=== PATIENT | female | born 1945 | race Caucasian/White ===

== ENCOUNTER 2018-08-16 08:53 | Inpatient (IN) ==
[2018-08-16] MEDS ORDERED: NS 1,000 ML IV ONE ×3 (09:03→10:08)
[2018-08-16 09:04] LABS: BASO# 0.03 X1000 (0.0-0.2); BASO% 0.4 % (0.0-0.8); EOS# 0.21 X1000 (0.0-0.7); EOS% 2.7 % (0.0-10.0); HEMATOCRIT 46.2 % (37.0-47.0); HEMOGLOBIN 15.5 g/dL (12.0-16.0); IMM GRAN# 0.04 X1000 (0.0-0.04); IMM GRAN% 0.5 % (0.0-0.5); LYMPH# 1.82 X1000 (1.2-3.4); LYMPH% 23.6 % (20.5-51.1); MCH 28.1 PG (27-31); MCHC 33.5 g/dL (33-37); MCV 83.8 FL (81-99); MONO# 0.71 X1000 (0.11-0.59); MONO% 9.2 % (1.7-9.3); MPV 9.8 FL (7.4-10.4); NEUT# 4.89 X1000 (1.4-6.5); NEUT% 63.6 % (42.2-75.2); PLT 216 X1000 (130-400); RBC 5.51 XMIL (4.2-5.4); RDW 14.7 % (11.5-14.5)
[2018-08-16 09:26] LABS: CREATININE 3.1 mg/dL (0.5-0.9); POTASSIUM 4.7 mmol/L (3.5-5.1); TOTAL BILIRUBIN 0.5 mg/dL (0.20-1.00); TOTAL PROTEIN 8.2 g/dL (6.3-8.3)
[2018-08-16 09:28] LABS: CALCIUM 13.1 mg/dL (8.8-10.2)
[2018-08-16 09:37] LABS: BILIRUBIN URINE NEGATIVE (NEGATIVE); BLOOD URINE 1+ (NEGATIVE); COLOR YELLOW; GLUCOSE URINE NEGATIVE (NEGATIVE); KETONE URINE TRACE mg/dL (NEGATIVE); LEUKOCYTES URINE TRACE (NEGATIVE); NITRITE URINE NEGATIVE (NEGATIVE); PROTEIN URINE 2+(100 mg/dL) mg/dL (NEGATIVE); SP GRAVITY URINE 1.015; URINE BACTERIA 1+ /HFP; URINE EPITHELIAL CELLS <10 /HPF (<10); URINE RBC <10 /HPF (<10); UROBILINOGEN URINE NORMAL
[2018-08-16 09:38] LABS: CLARITY CLEAR (CLEAR); URINE CAST NONE SEEN /LPF; URINE CRYSTAL NONE SEEN /HPF; URINE SOURCE CATH; URINE YEAST NONE SEEN /HPF
--- NOTE | 2018-08-16 09:40 | Diag Imaging Result Doc PS360 ---
EXAM: CT HEAD W/O CONTRAST HISTORY: altered mental status TECHNIQUE: CT head without contrast COMPARISON: 07/12/2018 FINDINGS: No parenchymal hemorrhage. No epidural or subdural hematoma. No subarachnoid hemorrhage. There is atrophy with chronic microvascular ischemic changes. No mass identified on this noncontrasted exam. No hydrocephalus. No change in the right mastoid fluid. IMPRESSION: 1.No hemorrhage 2.Atrophy with chronic microvascular ischemic changes This exam was performed using automated exposure control, adjustment of mA or kV according to patient size, and/or use of iterative reconstruction technique. Electronically signed by Colten Fischer 08/16/2018 9:37 AM
--- NOTE | 2018-08-16 09:40 | Diag Imaging Result Doc PS360 ---
EXAM: CHEST-PORTABLE HISTORY: AMS TECHNIQUE: Chest single view COMPARISON: 07/12/2018 FINDINGS: The lungs are well expanded. The heart is not enlarged. There are sternal wires and surgical clips. The vessels are not distended. There are no infiltrates. No effusion identified. Right granuloma. IMPRESSION: Stable chest Electronically signed by Colten Fischer 08/16/2018 9:38 AM
[2018-08-16] MEDS ORDERED: NS 1,000 ML IV SCH (11:30)
--- NOTE | 2018-08-16 13:17 | EKG Report ---
Test Performed on : 08/16/2018 09:16:00 AM Test Reason : abnormal labs Blood Pressure : / mmHG Vent. Rate : 085 BPM Atrial Rate : 085 BPM P-R Int : 188 ms QRS Dur : 118 ms QT Int : 368 ms P-R-T Axes : 054 -60 091 degrees QTc Int : 437 ms Normal sinus rhythm. Left anterior fascicular block Left ventricular hypertrophy with QRS widening and repolarization abnormality Cannot rule out Septal infarct , age undetermined Abnormal ECG When compared with ECG of 01-AUG-2018 11:47, No significant change was found Unconfirmed Result
[2018-08-16] MEDS: D5 1/2 NS 1,000 ML IV SCH ×2 (13:27→23:38)
--- NOTE | 2018-08-16 14:48 | HISTORY AND PHYSICAL ---
CHIEF COMPLAINT: Altered mental status. HISTORY OF PRESENT ILLNESS: This is a 73-year-old female, who presented to [facility] ER via EMS after she was found unresponsive this morning per [facility] staff, where she was there for some inpatient psychiatric treatment. When she arrived to the emergency room, her laboratory data showed a sodium of 150, chloride 112, BUN of 45, creatinine of 3.1, and it looks like her baseline is typically anywhere from 2.2 to 2.5, but is still mildly up. Her calcium was 13.1. Urinalysis was negative, except for 1+ bacteria. Chest x-ray was stable. Head CT: No hemorrhage. She is admitted to the medical unit for further evaluation and treatment. PAST MEDICAL HISTORY: Hypertension, diabetes type 2, hypothyroidism, schizophrenia, PTSD, chronic kidney disease stage 4. PAST SURGICAL HISTORY: CABG, hysterectomy, sinus surgery x2. FAMILY HISTORY: Noncontributory. SOCIAL HISTORY: Currently was at [facility] for inpatient psychiatric treatment. I am not sure who she lives with outside of the hospital setting, and no family is present for me to verify this, but there is no tobacco, alcohol, or illicit drugs noted. ALLERGIES: Levothyroxine. HOME MEDICATIONS: A current list will need to be obtained, reconciled, reviewed, and restarted as appropriate. Will place an order for nursing to update and confirm home medication. IMAGING AND LABORATORY DATA: Laboratory data showed a white blood cell count of 7.70, hemoglobin of 15.5, hematocrit 46.2, platelets 216,000. Sodium 150, potassium 4.7, chloride 112, CO2 of 25, BUN of 45, creatinine 3.1, glucose 107, calcium 13.1. Cardiac enzyme was negative. Urinalysis was negative, except for 1+ bacteria. Chest x-ray showed a stable chest. CT of the head showed no hemorrhage, atrophy, with chronic microvascular change. REVIEW OF SYSTEMS: Unable to obtain from the patient at this time. PHYSICAL EXAMINATION: VITAL SIGNS: On arrival, she had a temperature of 98.2, a pulse of 83, respirations 18, blood pressure 147/101, saturating 98% on room air. GENERAL: This is a 73-year-old female, lying in the bed, unable to answer questions at this time. HEENT: Normocephalic, atraumatic. Oropharynx is noted to be dry mucous membranes with crusting to her upper and lower lips, but otherwise normal inspection. Eyes: Pupils appear equal, round, and reactive to light and accommodation. Extraocular movements are intact. NECK: Normal inspection. Normal range of motion. LUNGS: Clear to auscultation bilaterally with equal lung expansion and chest wall movement. HEART: Regular rate and rhythm. No murmurs, rubs, or gallops. ABDOMEN: Soft, nontender, nondistended. Bowel sounds are present x4 quadrants. MUSCULOSKELETAL: She is moving all extremities well, but unable to assess strength at this time as she is not following any commands. NEUROLOGICAL: Cranial nerves II through XII appear grossly intact. ASSESSMENT: 1. Altered mental status. 2. Hypernatremia. 3. Acute on chronic kidney disease stage 4. 4. Hypercalcemia. PLAN: She is admitted to the medical unit at [place], placed on telemetry. Will do D5 and half normal saline at 100 mL an hour. Will update and confirm her home medications. Check a urine culture, and recheck CBC and BMP in the a.m., and further orders after being seen by attending. Dictated by [facility] for Javier Gastelum MD cc: [facility] MD
[2018-08-16 14:50] LABS: BILIRUBIN URINE NEGATIVE (NEGATIVE); BLOOD URINE TRACE (NEGATIVE); GLUCOSE URINE NEGATIVE (NEGATIVE); KETONE URINE NEGATIVE (NEGATIVE); LEUKOCYTES URINE NEGATIVE (NEGATIVE); NITRITE URINE NEGATIVE (NEGATIVE); PROTEIN URINE 1+(30 mg/dL) mg/dL (NEGATIVE); UROBILINOGEN URINE NORMAL
[2018-08-16 14:51] LABS: CLARITY CLEAR (CLEAR); COLOR YELLOW
[2018-08-16 14:58] LABS: URINE BACTERIA 1+ /HFP; URINE EPITHELIAL CELLS <10 /HPF (<10); URINE RBC <10 /HPF (<10); URINE WBC <10 /HPF (<10)
[2018-08-16 14:59] LABS: URINE CAST NONE SEEN /LPF; URINE CRYSTAL NONE SEEN /HPF; URINE SOURCE CATH; URINE YEAST NONE SEEN /HPF
[2018-08-16] MEDS ORDERED: MAALOX PLUS LIQUID PO PRN (16:24)
[2018-08-16] MEDS ORDERED: DULCOLAX PR PRN (16:24)
[2018-08-16] MEDS ORDERED: DESYREL PO PRN (16:24)
[2018-08-16] MEDS ORDERED: SENOKOT PO PRN (16:24)
[2018-08-16] MEDS ORDERED: IMODIUM PO PRN (16:24)
[2018-08-16] MEDS ORDERED: BLISTEX MEDICATED BERRY LIP BALM TOP PRN (16:24)
[2018-08-16] MEDS ORDERED: STERILE WATER INJ. INJ PRN (16:52)
[2018-08-16] MEDS ORDERED: GEODON IM PRN (16:52)
[2018-08-16] MEDS ORDERED: SODIUM CHLORIDE 0.9% INJ PRN (17:12)
[2018-08-16] MEDS ORDERED: TYLENOL PO PRN (17:37)
--- NOTE | 2018-08-16 17:40 | PROVIDER DOCUMENTATION ---
This chart was entered by [place] Scribe, acting as scribe for Cookie Sarabia MD. HPI-Neurological Disorder - General Chief Complaint: Abnormal Lab[s] Stated Complaint: AMS Time Seen by Provider: 08/16/18 09:06 Source: EMS Allergies/Adverse Reactions: Patient Allergies Allergy/AdvReac Type Severity Reaction Status Date / Time levothyroxine sodium Allergy Unknown Verified 07/12/18 03:13 Home Medications: Home Medication List Medication Instructions Recorded Confirmed Last Taken Type Metoprolol Succinate E.r. [Toprol 50 mg PO DAILY 11/12/13 07/12/18 07/11/18 History Xl] Clotrimazole/Bmethasone Cream 1 applic TOP BID 7 Days #1 tube 07/21/17 07/12/18 08/27/17 07:00 Rx [Lotrisone Cream] Levothyroxine Sodium [Synthroid] 112 mcg PO DAILY 07/12/18 07/12/18 Unknown History Nitrofurantoin [place]/Macrocryst 100 mg PO BID 07/12/18 07/12/18 Unknown History [Macrobid] Ondansetron Odt [Zofran Odt] 4 mg PO TID AC 07/12/18 07/12/18 Unknown History Pantoprazole Sodium 40 mg PO DAILY 07/12/18 07/12/18 Unknown History Polyethylene Glycol 3350 [Miralax] 17 gm PO BID 07/12/18 07/12/18 Unknown History Rivastigmine [Exelon 4.6MG/24Hrs] 1 ea TOP DAILY 07/12/18 07/12/18 Unknown History Sitagliptin Phosphate [Januvia] 25 mg PO QAM 07/12/18 07/12/18 Unknown History Sucralfate 1 gm PO AC + HS 07/12/18 07/12/18 Unknown History Divalproex [Depakote Sprinkle] 500 mg PO BID cap 08/05/18 Unknown Rx Melatonin 5 mg PO QHS tab 08/05/18 Unknown Rx Mirtazapine [Remeron] 15 mg PO QHS tab 08/05/18 Unknown Rx Risperidone [Risperdal M-Tab] 0.5 mg PO BID tab.rapdis 08/05/18 Unknown Rx Trazodone [Desyrel] 50 mg PO QHS tab 08/05/18 Unknown Rx - History of Present Illness-Neuro Nature of Presenting Problem: Patient is a 73 year old female who presents to the ED via EMS with altered mental status. EMS states patient was unresponsive this morning per [facility] staff. EMS reports [facility] staff stated patient has an abnormal lab. Severity: reports: mild Onset/Duration: reports: this morning Timing: reports: still present Context: reports: other (found unresponsive by [facility] staff) Character of Altered Mental Status: reports: unresponsive Any recent trauma/injury?: reports: none Similar Symptoms Previously?: No Recently seen or treated by another doctor?: Yes Review of Systems - Adult - REVIEW OF SYSTEMS - ADULT ROS:: unobtainable per condition Constitutional: reports: no symptoms reported Eyes: reports: no symptoms reported Ears, Nose, Mouth & Throat: reports: no symptoms reported Cardiovascular: reports: no symptoms reported Respiratory: reports: no symptoms reported Gastrointestinal: reports: no symptoms reported Genitourinary: reports: no symptoms reported Musculoskeletal: reports: no symptoms reported Integumentary: reports: no symptoms reported Neurological: reports: no symptoms reported Psychiatric: reports: no symptoms reported Endocrine: reports: no symptoms reported Hematologic/Lymphatic: reports: no symptoms reported Allergic/Immunologic: reports: no symptoms reported All Other Systems: Reviewed and Negative Past History - Adult - PAST MEDICAL HISTORY-ADULT Review of Records: reports: Nursing Assessment Review, Medications Reviewed, Social history reviewed & non-contributory. Major Childhood Illnesses: reports: denies history Cardiovascular: reports: HTN Respiratory: reports: denies history Gastrointestinal: reports: denies history Obstetrical/Gynecological: reports: denies history Genitourinary: reports: kidney disease Musculoskeletal: reports: denies history Neurological: reports: dementia Psychiatric: reports: depression, psychiatric problems, ptsd, suicide attempt, schizophrenia Endocrine/Immune: reports: Diabetes, thyroid disorder (hypothyroidism) Other Conditions: reports: denies history - PRIOR SURGERIES/PROCEDURES Surgical/Procedure History: reports: CABG, hysterectomy, other (sinus x 2) - PRIOR HOSPITALIZATIONS Prior Hospitalizations: reports: for similar symptoms - IMMUNIZATION STATUS Childhood Immunizations: See Nurse Assessment Flu Vaccine: See Nurse Assessment - FAMILY HISTORY Family History: reviewed, not pertinent - SOCIAL HISTORY Smoking: denies Substance Use: denies Physical Exam- Neurological - Physical Exam-Neuro Initial Vital Signs Reviewed: Yes General Appearance: no apparent distress, obtunded, other (rousable). negative: combative Eye Exam: bilateral eye: normal inspection HENMT: moist mucous membranes, normal ENT inspection. negative: angioedema, hearing deficit Head Injury: no evidence of injury. negative: ecchymosis, lacerations Respiratory: chest non-tender, lungs clear, normal breath sounds. negative: crackles, wheezing Cardiovascular: normal peripheral pulses, regular rate, rhythm. negative: bradycardia, systolic murmur Abdominal Exam: normal bowel sounds, non tender, soft. negative: guarding Extremity: non-tender, normal inspection. negative: deformity, erythema caretaker resort Exam: other (unable to assess per patient's condition) Motor/Sensory: other (unable to assess per patient's condition) Neurologic: other (unable to assess per patient's condition) Integumentary: normal color, normal turgor, warm/dry. negative: diaphoresis, jaundice Psych/Mental Status: other (obtunded but rousable.). negative: anxious, paranoid Progress - PLAN OF CARE/RESULTS Progress/Plan/Lab Results: Vital Signs - 8 hr 08/16/18 08:44 08/16/18 08:59 08/16/18 09:40 Temperature 98.2 F Pulse Rate 83 82 82 Respiratory Rate 18 20 17 Blood Pressure 147/101 163/85 164/96 O2 Sat by Pulse Oximetry 98 100 97 08/16/18 10:30 Temperature Pulse Rate 82 Respiratory Rate 14 Blood Pressure 99/71 O2 Sat by Pulse Oximetry 99 Laboratory Results - last 24 hr 08/16/18 08/16/18 08/16/18 08:51 08:51 08:51 WBC 7.70 RBC 5.51 H Hgb 15.5 Hct 46.2 MCV 83.8 MCH 28.1 MCHC 33.5 RDW Std Deviation 14.7 H Plt Count 216 MPV 9.8 Immature Gran % (Auto) 0.5 Neut % (Auto) 63.6 Lymph % (Auto) 23.6 [place] % (Auto) 9.2 Eos % (Auto) 2.7 Baso % (Auto) 0.4 Immature Gran # (Auto) 0.04 Neut # (Auto) 4.89 Lymph # (Auto) 1.82 [place] # (Auto) 0.71 H Eos # (Auto) 0.21 Baso # (Auto) 0.03 Sodium 150 H Potassium 4.7 Chloride 112 H Carbon Dioxide 25 Anion Gap 13 BUN 45 H Creatinine 3.1 H Estimated GFR/1.73 m2 15 BUN/Creatinine Ratio 15 Glucose 107 H Calculated Osmolality 310 Calcium 13.1 H* Total Bilirubin 0.50 AST 20 ALT 15 Alkaline Phosphatase 119 H Creatine Kinase 27 Troponin T Total Protein 8.2 Albumin 4.0 Globulin 4.0 Albumin/Globulin Ratio 1.0 Urine Source Urine Color Urine Clarity Urine pH Ur Specific [place] Urine Protein Urine Ketones Urine Blood Urine Nitrite Urine Bilirubin Urine Urobilinogen Urine Microscopic RBC Urine WBC Urine Microscopic WBC Ur Epithelial Cells Urine Crystals Urine Bacteria Urine Casts Urine Yeast Urine Glucose 08/16/18 08/16/18 08:51 09:17 WBC RBC Hgb Hct MCV MCH MCHC RDW Std Deviation Plt Count MPV Immature Gran % (Auto) Neut % (Auto) Lymph % (Auto) [place] % (Auto) Eos % (Auto) Baso % (Auto) Immature Gran # (Auto) Neut # (Auto) Lymph # (Auto) [place] # (Auto) Eos # (Auto) Baso # (Auto) Sodium Potassium Chloride Carbon Dioxide Anion Gap BUN Creatinine Estimated GFR/1.73 m2 BUN/Creatinine Ratio Glucose Calculated Osmolality Calcium Total Bilirubin AST ALT Alkaline Phosphatase Creatine Kinase Troponin T < 0.010 Total Protein Albumin Globulin Albumin/Globulin Ratio Urine Source CATH Urine Color YELLOW Urine Clarity CLEAR Urine pH 6.0 Ur Specific [place] 1.015 Urine Protein 2+(100 mg/dL) A Urine Ketones TRACE Urine Blood 1+ A Urine Nitrite NEGATIVE Urine Bilirubin NEGATIVE Urine Urobilinogen NORMAL Urine Microscopic RBC <10 Urine WBC TRACE A Urine Microscopic WBC 10-20 A Ur Epithelial Cells <10 Urine Crystals NONE SEEN Urine Bacteria 1+ Urine Casts NONE SEEN Urine Yeast NONE SEEN Urine Glucose NEGATIVE Orders Category Date Time Status Cardiac Monitoring DIRECTED Care 08/16/18 08:53 Active Saline Loc NOW Care 08/16/18 08:53 Active CHEST-PORTABLE [RAD] Stat Exams 08/16/18 09:[address] HEAD W/O CONTRAST [CT] Stat Exams 08/16/18 09:15 Completed CBC WITH DIFF [HEME] Stat Lab 08/16/18 08:51 Completed CK PROFILE [SP CHEM] Stat Lab 08/16/18 08:51 Completed COMPREHENSIVE METABOLIC PANEL [CHEM] Stat Lab 08/16/18 08:51 Completed TROPONIN T Stat Lab 08/16/18 08:51 Completed URINE CULTURE [RM] Routine Lab 08/16/18 09:38 Ordered ua [URINALYSIS PL W/POSS RFLX CULT] [URINALYSIS] Stat Lab 08/16/18 09:17 Completed 0.9% Sodium Chloride Inj [Ns] 1,000 ml Med 08/16/18 09:03 Discontinued IV 999 mls/hr 0.9% Sodium Chloride Inj [Ns] 1,000 ml Med 08/16/18 10:08 Active IV 999 mls/hr 0.9% Sodium Chloride Inj [Ns] 1,000 ml Med 08/16/18 10:08 Active IV 999 mls/hr EKG [EKG] Stat Ther 08/16/18 09:00 Ordered Result Diagrams: 08/16/18 08:51 08/16/18 08:51 - EKG 1 Time of EKG reading by physician:: 09:16 EKG Read and Signed by:: Cookie Sarabia EKG Interpretation (*Must complete 3 of following elements*): Abnormal (cannot rule out septal infarct, age undetermined) Rate: 85 Rhythm: normal sinus rhythm QRS: LVH GA Interval: normal Comments: left anterior fascicular block; - XRAY 1 XRAY Study: Chest Impression: See EMR Report ( EXAM: CHEST-PORTABLE HISTORY: AMS TECHNIQUE: Chest single view COMPARISON: 07/12/2018 FINDINGS: The lungs are well expanded. The heart is not enlarged. There are sternal wires and surgical clips. The vessels are not distended. There are no infiltrates. No effusion identified. Right granuloma. IMPRESSION: Stable chest Electronically signed by Colten Fischer 08/16/2018 9:38 AM 08/16/18937 Interpreting Physician: Colten Fischer MD Dictated Date/Time: 08/16/18937 cc: Cookie Sarabia MD; None,PCP) - CT/MRI 1 CT Study: Head Impression: See EMR Report ( EXAM: CT HEAD W/O CONTRAST HISTORY: altered mental status TECHNIQUE: CT head without contrast COMPARISON: 07/12/2018 FINDINGS: No parenchymal hemorrhage. No epidural or subdural hematoma. No subarachnoid hemorrhage. There is atrophy with chronic microvascular ischemic changes. No mass identified on this noncontrasted exam. No hydrocephalus. No change in the right mastoid fluid. IMPRESSION: 1.No hemorrhage 2.Atrophy with chronic microvascular ischemic changes This exam was performed using automated exposure control, adjustment of mA or kV according to patient size, and/or use of iterative reconstruction technique. Electronically signed by Colten Fischer 08/16/2018 9:37 AM 08/16/18 0937 Interpreting Physician: Colten Douglas MD Dictated Date/Time: 08/16/18 0935 cc: Cookie Sarabia MD; None,PCP) - CONSULTS/PCP/HOSPITALIST Notification #1 *Consult/PCP/Hospitalist*: Dr. Gastelum Time Discussed: 10:29 Reason/Comments: Dr. Sarabia consulted with Dr. Gastelum about patient. Consult Disposition: Admit Departure - Departure Date of Disposition Decision: 08/16/18 Time of Disposition Decision: 10:31 DIAGNOSIS: Hypercalcemia, Hypernatremia, Altered mental status, Dehydration Disposition: ADMITTED INPATIENT 09 Certified Medical Emergency: Emergent Condition: Stable Referrals and Follow-Ups: None,PCP [Primary Care Provider] - - Critical Care Note This patient required my direct & personal management of CC.: Yes Total Time (mins): 33 Critical Care Statement: This patient required my direct personal management to treat or rule out processes, the absence of which, could potentiallly result in sudden, clinically significant life or limb threatening deterioration. Attestation - Physician/ MARI Attestation The physician spent face to face time with patient:: Yes Advanced Practice Provider documentation review:: Supervising physician onsite and consulted in the evaluation and care of this patient. The physician did have a face to face encounter with the patient. This chart was documented by the indicated scribe, (Hazel Mead Scribe) and accurately reflects the services I performed and decisions made by me, Cookie Sarabia MD, as attested by the provider's signature.
[2018-08-16 18:11] LABS: UR CREAT RANDOM 61.2 mg/dL (11-20); UR PROT RANDOM 54.2 mg/dL
[2018-08-16] MEDS: ATIVAN IV PRN ×2 (19:30→23:36)
--- NOTE | 2018-08-16 20:04 | PROGRESS NOTE ---
DATE: 08/16/2018 This is an unfortunate lady, 73 years old, severe dementia with combative behavior, who has been at [facility] for the last 3 weeks. She was not awake, alert, but per family she has not been eating and drinking either. She had a couple of episodes of nausea, vomiting. She does have chronic renal failure, but she has developed significant hypercalcemia, hypernatremia. Per family, she has been a long-term resident I think at [facility], but because of behavioral issues, she has been at [facility] now reportedly for 3 weeks now. According to this, she has been there since the 12 of July, which is longer than 3 weeks and her history and physical says it is from 07/12. She has been there for quite a long time. In any case, reportedly also has schizophrenia, PTSD. She has been on Risperdal, trazodone, Depakote sprinkles, Remeron over the last 24 hours or so though she has progressively gotten less arousable. Now her sodium here is 150. Her creatinine is 3.1, which is an increase. Her calcium is through the roof 13.2, which it has been up before. In any case, the exam is really not too remarkable. PROBLEM LIST: 1. Hyponatremia. We will continue free water supplementation and follow. This is likely do just to poor p.o. intake, poor water intake. She has just been drinking Ensure. 2. Hypercalcemia. We will continue treatment. I may give her IV fluids and we may require a bisphosphonate once we get the workup kind of situated. 3. Dementia, severe. Will continue regular medications and follow. 4. Acute on chronic renal failure stage 4, which at this point she is likely right around stage 4 to 5. We will continue to follow hydration and follow. DISPOSITION: Pending her clinical status. This is a [id number] with [facility]. Family is deciding about possible rehab options with the patient. We will get a hospice evaluation, palliative care consult and see how she does. cc: Javier Gastelum MD
[2018-08-16 20:09] LABS: PHOSPHORUS 3.9 mg/dL (2.7-4.5)
[2018-08-16] MEDS: [UNRECOGNIZED DRUG - OTHER] PO SCH (20:11)
[2018-08-16] MEDS: MEGACE LIQUID PO SCH (20:12)
[2018-08-16] MEDS: LOTRISONE CREAM TOP SCH (20:12)
[2018-08-16] MEDS: RISPERDAL M-TAB PO SCH (20:12)
[2018-08-16] MEDS: MIRALAX PO SCH (20:12)
[2018-08-16 20:27] LABS: CALCIUM 13.3 mg/dL (8.8-10.2)
[2018-08-16] MEDS ORDERED: MELATONIN PO SCH (21:00)
[2018-08-16] MEDS ORDERED: REMERON PO SCH (21:00)
[2018-08-16] MEDS ORDERED: DEPAKOTE SPRINKLE PO SCH (21:00)
[2018-08-16] MEDS ORDERED: DESYREL PO SCH (21:00)
[2018-08-16] MEDS ORDERED: ATIVAN PO SCH (21:00)
[2018-08-16] MEDS ORDERED: LABETALOL IV PRN (23:14)
[2018-08-16] MEDS ORDERED: MORPHINE IV PRN (23:17)
[2018-08-17 06:53] LABS: BASO# 0.02 X1000 (0.0-0.2); BASO% 0.3 % (0.0-0.8); EOS% 5.1 % (0.0-10.0); HEMATOCRIT 42.5 % (37.0-47.0); IMM GRAN# 0.04 X1000 (0.0-0.04); IMM GRAN% 0.7 % (0.0-0.5); LYMPH# 1.84 X1000 (1.2-3.4); LYMPH% 31.1 % (20.5-51.1); MCH 28.2 PG (27-31); MCHC 32.9 g/dL (33-37); MCV 85.7 FL (81-99); MONO# 0.65 X1000 (0.11-0.59); MPV 9.9 FL (7.4-10.4); NEUT# 3.06 X1000 (1.4-6.5); NEUT% 51.8 % (42.2-75.2); PLT 184 X1000 (130-400); RBC 4.96 XMIL (4.2-5.4); RDW 14.9 % (11.5-14.5); WBC 5.91 X1000 (4.8-10.8)
[2018-08-17] MEDS ORDERED: SYNTHROID PO SCH (07:00)
[2018-08-17] MEDS: SYNTHROID IV SCH ×2 (07:08→09:30)
[2018-08-17 07:22] LABS: CREATININE 2.6 mg/dL (0.5-0.9); POTASSIUM 3.9 mmol/L (3.5-5.1)
[2018-08-17] MEDS ORDERED: TOPROL XL PO SCH (09:00)
[2018-08-17] MEDS ORDERED: JANUVIA PO SCH (09:00)
[2018-08-17] MEDS ORDERED: PROTONIX PO SCH (09:00)
[2018-08-17] MEDS: [UNRECOGNIZED DRUG - OTHER] PO SCH (09:09)
[2018-08-17] MEDS: MEGACE LIQUID PO SCH (09:10)
[2018-08-17] MEDS: MIRALAX PO SCH (09:13)
[2018-08-17] MEDS: EXELON 4.6MG/24HRS TD SCH (09:30)
[2018-08-17] MEDS: ATIVAN IV PRN ×3 (09:31→19:40)
[2018-08-17] MEDS: D5 1/2 NS 1,000 ML IV SCH (09:32)
[2018-08-17] MEDS: LOTRISONE CREAM TOP SCH ×2 (09:33→20:42)
[2018-08-17] MEDS: RISPERDAL M-TAB PO SCH (09:34)
[2018-08-17] MEDS ORDERED: D5W 1,000 ML IV SCH (10:00)
[2018-08-17] MEDS ORDERED: TYLENOL PR PRN (11:53)
--- NOTE | 2018-08-17 12:15 | PROGRESS NOTE ---
DATE: 08/17/2018 SUBJECTIVE: The patient is still very agitated, confused, also complaining of pain or at least seems uncomfortable. OBJECTIVE: Blood pressure is 159/74, heart rate 74, respiratory rate 16, temperature 97.8 degrees. Cardiovascular: Regular rate and rhythm. Pulmonary: Bilateral breath sounds clear to auscultation. GI: Soft, nontender, nondistended. Bowel sounds were positive. She seems agitated, confused. PROBLEM LIST: 1. Hypernatremia, hypercalcemia. This may be related to a primary hyperparathyroid issue. This may be contributing to her confusion but it is felt, generally speaking, she has had a steady decline dementia-stevenson for a long time now, which has not necessarily been related to her hypernatremia or hypercalcemia. Her power of privacy attorney is her, I believe, granddaughter or in any case, she has decided to make her Do Not Resuscitate. She really wants her to be a comfort care patient. She has been at [facility] trying to get appropriately stabilized from a dementia standpoint to combative, violent behavior standpoint. I think that reached a point of as stable as she is going to get. Now she is stopping eating and drinking. Her family does not want to put her through much more so we are going to elect to pursue comfort care measures. 2. Dementia, which is severe. She has combative behaviors, reportedly psychosis with schizophrenia. We will continue as needed treatments and follow. 3. Acute on chronic kidney failure, stage IV. 4. Urinary tract infection, gram-positive cocci, but the family is wanting to pursue comfort care measures. DISPOSITION: Initially it was planned for, I think, a fdc for hospice which may still be an option but patient is not eating and drinking. She has been that way for several days. She appears clinically dehydrated. She is persistently hypernatremic. I think there is a rapid decline that she may benefit from inpatient hospice. We are going to have them evaluate her. Her symptoms do not seem to be controlled as far as pain and possibly agitation. We will start to work on that and go from there. The patient is a Do Not Resuscitate. She had a portable Do Not Resuscitate. We will continue to follow. Discussed at length with her family. cc: Javier Gastelum MD
[2018-08-18] MEDS: LOTRISONE CREAM TOP SCH ×2 (09:42→19:58)
[2018-08-18] MEDS: EXELON 4.6MG/24HRS TD SCH (09:42)
[2018-08-18] MEDS ORDERED: ATROPINE 1 % OPHTH SOLN SL PRN (11:25)
--- NOTE | 2018-08-18 12:10 | PROGRESS NOTE ---
DATE: 08/18/2018 SUBJECTIVE: The patient seems comfortable. She seems to be more comfortable and not as agitated. Family is concerned about secretions she is having. OBJECTIVE: Blood pressure 157/73, heart rate 93, respiratory rate 18, temperature 97.9 degrees 9,5% on room air. Cardiovascular: Regular rate and rhythm. Pulmonary: Bilateral breath sounds clear to auscultation. GI: Soft, nontender, nondistended. Bowel sounds were positive. Laboratory Data: None today. PROBLEM LIST: 1. Severe dementia with progressive anorexia. The patient is not eating and drinking. She is already having metabolic effects including profound hypernatremia and significant hypercalcemia. We are not treating anymore for that. 2. Dementia is severe. She is on as needed medications. DISPOSITION: We are looking at comfort care measures for the time-being. She did not qualify for GIP. We will continue treatments and follow. We may have to look at rehab admission but we will see how she does the next day because I feel like she has deteriorated every day and her labs were pretty significantly abnormal when she came in. Per the family, I think she had stopped eating and drinking about 3 days prior to admission. That was about 5 days ago so we will see how things look today. cc: Javier Gastelum MD
[2018-08-18] MEDS: ATIVAN IV PRN (13:02)
[2018-08-18] MEDS: TRANSDERM-SCOP TD SCH (13:02)
[2018-08-18] MEDS: MORPHINE IV PRN (15:20)
[2018-08-19] MEDS: ATIVAN IV PRN ×2 (01:25→08:06)
[2018-08-19] MEDS: LOTRISONE CREAM TOP SCH ×3 (06:38→20:10)
[2018-08-19] MEDS: MORPHINE IV PRN ×3 (07:15→19:00)
[2018-08-19] MEDS: EXELON 4.6MG/24HRS TD SCH (09:06)
--- NOTE | 2018-08-19 13:09 | PROGRESS NOTE ---
DATE: 08/19/2018 SUBJECTIVE: Patient has no major complaints. She seems more restless, like yesterday she just seemed very comfortable, but today she is just restless. She cannot get comfortable. OBJECTIVE DATA: Vital signs: Are vital signs are fairly stable. Blood pressure 125/87, heart rate 98, respiratory rate 20, temperature 97.7 degrees, 98% on room air. Cardiovascular: Regular rate and rhythm. Pulmonary: Bilateral breath sounds clear to auscultation. LABORATORY DATA: No new lab data today. PROBLEM: Severe dementia with anorexia. She is refusing to eat and having sequela of hypernatremia. She is persistently agitated. She has also had significant hypercalcemia. Family wants to pursue comfort care measures which is the granddaughter who is the power of transactional attorney. She did not qualify for inpatient hospice. We are going to continue comfort care for the time being. To me, she seems like she is deteriorating. She has had no food in 6 days, so I do not think it is going to be too much longer. If there is prolonged, the family has decided that they will take her home, so I will continue to follow. She is a DNR. Discussed with family. cc: Javier Gastelum MD
[2018-08-19] MEDS: ATIVAN IV SCH ×2 (14:52→21:29)
[2018-08-20] MEDS: MORPHINE IV PRN ×4 (00:40→20:52)
[2018-08-20] MEDS: ATIVAN IV SCH ×6 (04:00→23:14)
[2018-08-20] MEDS: EXELON 4.6MG/24HRS TD SCH (08:39)
[2018-08-20] MEDS: LOTRISONE CREAM TOP SCH ×2 (08:49→20:47)
[2018-08-20] MEDS ORDERED: DURAGESIC 25 MICROGM/HR PATCH TD SCH (18:15)
[2018-08-21] MEDS: MORPHINE IV PRN ×2 (02:46→08:27)
--- NOTE | 2018-08-21 04:18 | PROGRESS NOTE ---
DATE: 08/20/2018 SUBJECTIVE: Patient has no major complaints. She seems to be a little bit more awake and agitated today. We are going to kind of see how she does. OBJECTIVE: Vital signs: Stable. Blood pressure 125/61, heart rate 84, respiratory rate 18, temperature 97.6 degrees. HEENT: Her oropharynx is dry. Cardiovascular: Regular rate and rhythm. Pulmonary: Bilateral breath sounds. Clear to auscultation. Gastrointestinal: Soft, nontender. LABORATORY DATA: No new lab works. ASSESSMENT AND PLAN: Severe dementia, anorexia, hypercalcemia, hypernatremia. We are continuing comfort care measures. Daughter is concerned about her pain level, so we will initiate some long- standing pain medication, increase her scheduled Ativan and see how she does, because she does seem intermittently agitated. We will continue to follow closely. cc: Javier Gastelum MD
[2018-08-21] MEDS: ATIVAN IV SCH ×3 (05:32→17:30)
[2018-08-21] MEDS: EXELON 4.6MG/24HRS TD SCH (08:27)
[2018-08-21] MEDS: LOTRISONE CREAM TOP SCH (08:28)
[2018-08-21] MEDS: ATIVAN IV PRN (10:21)
[2018-08-21] MEDS: TRANSDERM-SCOP TD SCH (12:31)
--- NOTE | 2018-08-21 16:01 | PROGRESS NOTE ---
DATE: 08/21/2018 SUBJECTIVE: Patient has no complaints. OBJECTIVE: Vital Signs: Blood pressure 162/90, heart rate 98, respiratory rate 22, temperature 99. Cardiovascular: Regular rate and rhythm. Pulmonary: Bilateral breath sounds. Clear to auscultation. Gastrointestinal: Soft, nontender, nondistended. Bowel sounds are positive. LABORATORY DATA: No new data. PROBLEM LIST: 1. Severe dementia. 2. Anorexia. 3. Clinical evidence of dehydration. 4. Hypernatremia. 5. Hypercalcemia. PLAN: Continue comfort care. I discussed with family that at this point it does not look like there is a significant decline and may have to consider outpatient opportunities. She has a bed in [place] at the facility, but I think that the granddaughter is inclined to just do home hospice so [facility] I think has already been set up. So, will discuss with the family about pursuing that in the next 24 hours and follow closely. cc: Javier Gastelum MD
[2018-08-22] MEDS: LOTRISONE CREAM TOP SCH ×3 (00:09→20:08)
[2018-08-22] MEDS: ATIVAN IV SCH ×4 (00:10→18:27)
[2018-08-22] MEDS: MORPHINE IV PRN ×4 (09:46→22:45)
[2018-08-22] MEDS: EXELON 4.6MG/24HRS TD SCH (09:46)
--- NOTE | 2018-08-22 10:57 | PROGRESS NOTE ---
DATE: 08/22/2018 SUBJECTIVE: The patient's family notes that she had been changed overnight. She has started having difficulty breathing at times. PHYSICAL EXAMINATION: Vital Signs: Temperature 98.6, pulse 106, respiratory rate 18, BP 144/85. General: Patient is lying in bed. She does not arouse to verbal or mild stimuli. She will grunt to noxious stimuli. She is having Kussmaul breathing. HEENT: Normocephalic. Neck: Supple. Cardiovascular: Regular rate. Chest: Sonorous breathing currently. Abdomen: Soft. Extremities: No edema. Neurologic: No changes. ASSESSMENT: 1. Do Not Resuscitate, in the end stages of life. 2. Anorexia. 3. Hypernatremia. 4. Hypercalcemia. 5. Severe dementia. PLAN: We will continue comfort care. Unfortunately, the patient does not have a residence that she can go back to. Therefore, will need to stay in the hospital currently. Family is working on discharge planning. cc: Neal Schwab MD
[2018-08-23] MEDS: ATIVAN IV SCH ×2 (00:12→05:23)
[2018-08-23] MEDS: MORPHINE IV PRN ×2 (03:10→06:36)
[2018-08-23] MEDS: TRANSDERM-SCOP TD SCH (03:21)
[2018-08-23 03:26] VITALS: BP 125/63
[2018-08-23] MEDS ORDERED: MORPHINE IV PRN (06:40)
--- NOTE | 2018-08-23 11:24 | DISCHARGE SUMMARY ---
ADMISSION DATE: 08/16/2018 DISCHARGE DATE: 08/23/2018 DISCHARGE DIAGNOSES: 1. Altered mental status. 2. Hypernatremia. 3. Chronic kidney disease stage 4. 4. Hypercalcemia. 5. Enterococcus faecalis urinary tract infection. 6. Anorexia. 7. Severe dementia. 8. Do not resuscitate level 1. DIAGNOSTICS: 1. 08/16/2018: CT of the head revealed no hemorrhage atrophy with chronic microvascular ischemic changes. 2. Chest x-ray revealed lungs are well expanded. Heart is not enlarged. There are sternal wires and surgical clips. Vessels are not distended. There are no infiltrates. No effusion identified. There is a right granuloma which is stable. HOSPITAL COURSE: Ms. Damon presented to the emergency room [facility] via EMS after being found unresponsive by her [facility] staff where she was an inpatient. She was found to be hyponatremic with a sodium of 150, BUN of 45 and creatinine 3.1 with a baseline creatinine of 2.2 to 2.5. On arrival to the emergency room. She was found to be hypercalcemic as well as hypernatremic for which she was treated with free water supplementation. She had a rapid decline. The family opted to make the patient do not resuscitate. Therefore, hospice was consulted. She did not qualify for [facility]. Comfort measures were instituted. She continued to decline, and the patient was found apneic and asystolic at 7:50 in the morning on 08/23/2018. Dictated by BHARAT Doherty for Neal Schwab MD cc: BHARAT Doherty MD
--- NOTE | 2018-08-24 00:44 | DISCHARGE SUMMARY ---
ADMISSION DATE: 08/16/2018 DISCHARGE DATE: 08/23/2018 DISCHARGE DIAGNOSIS: 1. Do Not Resuscitate. 2. Patient around 8:30 on 08/23/2018. 3. Severe dementia. 4. Anorexia. 5. Hypernatremia. 6. Hypocalcemia. 7. Hypoxic respiratory failure. CONSULTATIONS: Hospice. PROCEDURES: None. BRIEF HOSPITAL COURSE: Patient is a 73-year-old female who presented to the hospital with hypernatremia, hypercalcemia due to volume depletion secondary to her severe dementia and anorexia. It became evident that this was not going to improve. Discussed with the family and they declined further treatment and stated that she was DNR. Hospice was consulted, but unfortunately, the family had no opportunity to be discharged home due to social situation. Therefore, she remained in the hospital where she was treated with hospice care. She has subsequently on 08/23/2018. cc: Neal Schwab MD
== END 2018-08-23 07:50 | disposition expired | DRG 641 ==
LOC: P.ED 08:53 → SUATTDRO 11:05 → P.MEDSURG 11:05
PROVIDERS: ATTEND Family Medicine
CPT/HCPCS: 51701; 70450; 71010; 71045; 80048; 80053; 81001; 82310; 82397; 82550; 82570; 83970; 84100; 84156; 84300; 84443; 84484; 85025; 87077; 87088; 87186; 93005; 96360; 96361; 99285; A9270; J2060; J2270; J7030; P9612